=== PATIENT | male | born 1945 | race Two or more races ===

== ENCOUNTER 2024-07-01 14:01 | Inpatient (IN) | payer OTHER ==
[~2024-07-01] VITALS: Ht 165.1 cm; Wt 68.0 kg
[2024-07-01] MEDS ORDERED: 0.9 % SODIUM CHLORIDE 1,000 ML IV ONE (14:45)
[2024-07-01 14:52] LABS: ABG PH 7.336 (7.35-7.45); ABG PO2 92.3 mmHg (80-100); BASE EXCESS -15.3 mmol/l; BICARBONATE 7.3 mmol/l (23-25); Tco2 7.7 mmol/l
[2024-07-01 15:00] LABS: ABG pCO2 13.9 mmHg (35-45); allen test SATISFACTORY
[2024-07-01] MEDS ORDERED: PANTOPRAZOLE SODIUM 40 MG/VIAL VIAL IV ONE (15:00)
[2024-07-01] MEDS ORDERED: SODIUM BICARBONATE 1 MEQ/ML DISP.SYRIN 50ML IV ONE (15:00)
[2024-07-01] MEDS ORDERED: METOPROLOL TARTRATE 5MG/5ML AMPUL IV ONE (15:00)
[2024-07-01 15:01] LABS: o2 21 %; puncture site RADIAL LEFT
[2024-07-01 15:07] LABS: MEAN CELL VOLUME 90.8 fL (80.0-100.00); MEAN CORPUSCULAR HGB CONC 30.3 g/dl (32.0-36.0); PLATELET COUNT 692 K/uL (150-450); RED BLOOD COUNT 2.28 M/uL (4.00-6.00); RED CELL DISTRIBUTION WIDTH 16.5 % (11.5-14.5)
[2024-07-01 15:11] LABS: HEMATOCRIT 20.7 % (39.0-48.0); HEMOGLOBIN 6.3 g/dL (13-16.00); MEAN CORPUSCULAR HEMOGLOBIN 27.6 pg (27.00-32.0)
[2024-07-01 15:14] LABS: INR 1.23; PARTIAL THROMBOPLASTIN TIME 27.3 SECONDS (22.0-34.0); PROTHROMBIN TIME 13.2 SECONDS (9.0-11.5)
[2024-07-01 15:27] LABS: ALBUMIN 2.2 gm/dL (3.4-5.0); BILIRUBIN TOTAL 0.23 mg/dL (0.3-1.2); CALCIUM 8.6 mg/dL (8.5-10.1); CREATININE SERUM 2.12 mg/dL (0.70-1.30); GFR 30.44; GLOBULINA 4.4 G/DL (2.4-3.5); POTASSIUM 5.75 mEq/L (3.5-5.1); TOTAL PROTEIN 6.6 gm/dL (6.4-8.2)
[2024-07-01 16:39] LABS: URINE APPEARANCE Clear; URINE BILIRRUBIN Negative (NEGATIVE); URINE BLOOD Negative; URINE COLOR Yellow; URINE GLUCOSE Negative (NEGATIVE); URINE KETONE Negative (NEGATIVE); URINE LEUKOCYTE Negative; URINE NITRATE Negative; URINE PROTEIN Trace (NEGATIVE); URINE UROBILINOGEN 0.2 E.U./dl
[2024-07-01 16:43] LABS: URINE EPITHELIAL CELLS 22.8 uL (0.0-38.8); URINE WBC 37.8 uL (0.0-23.2)
[2024-07-01 16:48] LABS: URINE CAST 1.06 uL (0.0-1.40)
[2024-07-01] MEDS ORDERED: ONDANSETRON HCL 2 MG/ML VIAL IV STA (17:04)
[2024-07-01] MEDS ORDERED: MORPHINE SULFATE 4 MG/ML VIAL IV STA (17:05)
[2024-07-01] MEDS ORDERED: DOPamine HCL IN DEXTROSE 5 % 250 ML IV SCH (19:15)
[2024-07-01] MEDS ORDERED: DEXTROSE 5 % AND 0.9 % NACL 1,000 ML IV SCH (19:15)
[2024-07-01] MEDS ORDERED: MORPHINE SULFATE 4 MG/ML VIAL IV PRN (19:30)
[2024-07-01] MEDS ORDERED: NOREPINEPHRINE BITARTRATE 1 MG/ML AMPUL IV ONE (20:30)
[2024-07-01 20:39] VITALS: BP 70/60; O2SAT 99
[2024-07-01] MEDS ORDERED: DOCUSATE SODIUM 100MG CAP PO SCH (21:00)
[2024-07-01] MEDS ORDERED: PANTOPRAZOLE SODIUM 40 MG/VIAL VIAL IV SCH (21:00)
[2024-07-01] MEDS ORDERED: CEFTRIAXONE SODIUM 1,000 MG in DEXTROSE 5 % IN WATER 100 ML IV SCH (21:00)
[2024-07-01 22:18] LABS: ABG PH 7.491 (7.35-7.45); ABG PO2 69.3 mmHg (80-100)
[2024-07-01 22:19] LABS: BASE EXCESS -1.6 mmol/l; BICARBONATE 20.1 mmol/l (23-25); SaO2 -95.1 %; o2 21 %
[2024-07-01 22:20] LABS: allen test SATISFACTORY; puncture site RADIAL LEFT
[2024-07-01] MEDS ORDERED: FUROsemide 20 MG/2 ML VIAL IV SCH (22:30)
[2024-07-02] VITALS (7 sets, daily range): BP systolic 87–124; BP diastolic 56–78; O2SAT 94–100
[2024-07-02] MEDS ORDERED: DEXAMETHASONE SODIUM PHOSPHATE 4 MG/ML VIAL IV SCH (01:00)
[2024-07-02] MEDS ORDERED: ONDANSETRON HCL 2 MG/ML VIAL IV SCH (01:00)
[2024-07-02] MEDS ORDERED: NOREPINEPHRINE BITARTRATE 8 MG in DEXTROSE 5 % IN WATER 250 ML IV SCH (11:15)
[2024-07-02 13:10] LABS: ALBUMIN 1.9 gm/dL (3.4-5.0); BILIRUBIN TOTAL 0.41 mg/dL (0.3-1.2); CALCIUM 7.5 mg/dL (8.5-10.1); CREATININE SERUM 1.14 mg/dL (0.70-1.30); GFR 62.29; GLOBULINA 3.8 G/DL (2.4-3.5); POTASSIUM 3.94 mEq/L (3.5-5.1); TOTAL PROTEIN 5.7 gm/dL (6.4-8.2)
[2024-07-02] MEDS ORDERED: AMIODARONE HCL 50 MG/ML AMPUL IV ONE (14:15)
[2024-07-02 14:24] LABS: MAGNESIUM 2.3 mg/dL (1.8-2.4); PHOSPHOROUS 2.9 mg/dL (2.5-4.9)
[2024-07-02] MEDS ORDERED: AA 4.25%/CAL/LYTES/DEXT 5% 1,000 ML PERIFERAL SCH (17:23)
[2024-07-02] MEDS ORDERED: AA 4.25%/CALCIUM/LYTES/DEX 10% 1,000 ML CENTRAL SCH (17:30)
[2024-07-02 18:43] LABS: HEMATOCRIT 25.7 % (39.0-48.0); MEAN CELL VOLUME 85.1 fL (80.0-100.00); MEAN CORPUSCULAR HEMOGLOBIN 28.2 pg (27.00-32.0); MEAN CORPUSCULAR HGB CONC 33.2 g/dl (32.0-36.0); PLATELET COUNT 565 K/uL (150-450); RED BLOOD COUNT 3.01 M/uL (4.00-6.00); RED CELL DISTRIBUTION WIDTH 15.3 % (11.5-14.5)
[2024-07-02 18:44] LABS: HEMOGLOBIN 8.5 g/dL (13-16.00)
[2024-07-03] VITALS (16 sets, daily range): BP systolic 99–138; BP diastolic 69–84; O2SAT 94–100
[2024-07-03 17:53] LABS: HEMATOCRIT 30.7 % (39.0-48.0); HEMOGLOBIN 10.4 g/dL (13-16.00); MEAN CELL VOLUME 85.6 fL (80.0-100.00); MEAN CORPUSCULAR HEMOGLOBIN 28.8 pg (27.00-32.0); MEAN CORPUSCULAR HGB CONC 33.7 g/dl (32.0-36.0); PLATELET COUNT 394 K/uL (150-450); RED BLOOD COUNT 3.59 M/uL (4.00-6.00)
[2024-07-04 08:26] VITALS: BP 108/67; O2SAT 98
[2024-07-04] MEDS ORDERED: DIATRIZOATE MEGLUMINE, SODIUM 30 ML BOTTLE PO STA (11:31)
[2024-07-04 16:00] VITALS: BP 125/77; O2SAT 95
[2024-07-04] MEDS ORDERED: KETOROLAC TROMETHAMINE 30 MG VIAL IV STA (19:02)
[2024-07-04] MEDS ORDERED: DEXTROSE 50 % IN WATER 0.5 G/ML DISP.SYRIN IV PRN (19:15)
[2024-07-04] MEDS ORDERED: HYOSCYAMINE SULFATE 0.125 MG TAB.SUBL SL PRN (19:15)
[2024-07-04] MEDS ORDERED: KETOROLAC TROMETHAMINE 30 MG VIAL IV PRN (19:15)
[2024-07-04 20:00] VITALS: BP 127/72
[2024-07-04 21:30] VITALS: BP 114/73
[2024-07-05 01:29] VITALS: BP 125/77; O2SAT 95
[2024-07-05 08:00] VITALS: BP 112/72; O2SAT 95
[2024-07-05] MEDS ORDERED: MORPHINE SULFATE 4 MG/ML CARTRIDGE IV STA (10:32)
[2024-07-05 12:54] LABS: HEMATOCRIT 36.6 % (39.0-48.0); HEMOGLOBIN 12.2 g/dL (13-16.00); MEAN CELL VOLUME 85.9 fL (80.0-100.00); MEAN CORPUSCULAR HEMOGLOBIN 28.5 pg (27.00-32.0); MEAN CORPUSCULAR HGB CONC 33.2 g/dl (32.0-36.0); PLATELET COUNT 328 K/uL (150-450); RED BLOOD COUNT 4.26 M/uL (4.00-6.00); RED CELL DISTRIBUTION WIDTH 15.8 % (11.5-14.5)
[2024-07-05 14:01] LABS: ALBUMIN 1.8 gm/dL (3.4-5.0); BILIRUBIN TOTAL 1.41 mg/dL (0.3-1.2); CALCIUM 7.9 mg/dL (8.5-10.1); CREATININE SERUM 1.01 mg/dL (0.70-1.30); GFR 71.63; GLOBULINA 3.9 G/DL (2.4-3.5); POTASSIUM 4.88 mEq/L (3.5-5.1); TOTAL PROTEIN 5.7 gm/dL (6.4-8.2)
[2024-07-05] MEDS ORDERED: fentaNYL CITRATE 50 MCG/ML AMPUL IV PUSH ONE (15:00)
[2024-07-05] MEDS ORDERED: MIDAZOLAM HCL 2 MG/2 ML VIAL IV PUSH ONE (15:00)
[2024-07-05 17:12] VITALS: BP 116/65; O2SAT 97
[2024-07-06] VITALS: BP 102/60; O2SAT 92
[2024-07-06 05:33] VITALS: O2SAT 84
[2024-07-06 09:00] VITALS: BP 114/74; O2SAT 94
[2024-07-06] MEDS ORDERED: CEFTRIAXONE SODIUM 2,000 MG in 0.9 % SODIUM CHLORIDE 100 ML IV NR (13:40)
[2024-07-06] MEDS ORDERED: ANIDULAFUNGIN 100 MG VIAL IV NR (14:00)
[2024-07-06 16:57] VITALS: BP 113/75; O2SAT 91
[2024-07-06] MEDS ORDERED: METRONIDAZOLE/SODIUM CHLORIDE 100 ML IV SCH (17:00)
[2024-07-07] VITALS: BP 111/69; O2SAT 93
[2024-07-07 07:58] LABS: HEMATOCRIT 34.9 % (39.0-48.0); HEMOGLOBIN 11.5 g/dL (13-16.00); MEAN CELL VOLUME 86.4 fL (80.0-100.00); MEAN CORPUSCULAR HEMOGLOBIN 28.6 pg (27.00-32.0); MEAN CORPUSCULAR HGB CONC 33.1 g/dl (32.0-36.0); PLATELET COUNT 267 K/uL (150-450); RED BLOOD COUNT 4.04 M/uL (4.00-6.00)
[2024-07-07 08:24] LABS: ALBUMIN 1.6 gm/dL (3.4-5.0); BILIRUBIN TOTAL 1.32 mg/dL (0.3-1.2); CALCIUM 8.6 mg/dL (8.5-10.1); CREATININE SERUM 0.94 mg/dL (0.70-1.30); GFR 77.82; GLOBULINA 3.6 G/DL (2.4-3.5); MAGNESIUM 2.7 mg/dL (1.8-2.4); POTASSIUM 5.5 mEq/L (3.5-5.1); TOTAL PROTEIN 5.2 gm/dL (6.4-8.2)
[2024-07-07] MEDS ORDERED: ANIDULAFUNGIN 100 MG VIAL IV SCH (09:00)
[2024-07-07 10:29] VITALS: BP 117/76; O2SAT 91
[2024-07-07] MEDS ORDERED: CEFTRIAXONE SODIUM 2,000 MG in 0.9 % SODIUM CHLORIDE 100 ML IV SCH (12:00)
[2024-07-07] MEDS ORDERED: SODIUM BICARBONATE 50MEQ/50ML VIAL IV NR (15:00)
[2024-07-07 15:22] VITALS: BP 132/77; O2SAT 98
[2024-07-07] MEDS ORDERED: DEXAMETHASONE SODIUM PHOSPHATE 4 MG/ML VIAL IV SCH (21:00)
[2024-07-08] VITALS: BP 123/68; O2SAT 97
[2024-07-08 06:13] LABS: ABG PH 7.462 (7.35-7.45); ABG PO2 63.9 mmHg (80-100); ABG pCO2 34.8 mmHg (35-45); SaO2 93.5 %
[2024-07-08 06:14] LABS: BASE EXCESS 1.1 mmol/l; BICARBONATE 24.3 mmol/l (23-25); Tco2 25.4 mmol/l; allen test SATISFACTORY; o2 21 %; puncture site RADIAL RIGHT
[2024-07-08 06:42] LABS: HEMATOCRIT 34.8 % (39.0-48.0); HEMOGLOBIN 11.3 g/dL (13-16.00); MEAN CELL VOLUME 86.9 fL (80.0-100.00); MEAN CORPUSCULAR HEMOGLOBIN 28.2 pg (27.00-32.0); MEAN CORPUSCULAR HGB CONC 32.4 g/dl (32.0-36.0); PLATELET COUNT 238 K/uL (150-450); RED CELL DISTRIBUTION WIDTH 16.2 % (11.5-14.5)
[2024-07-08 07:11] LABS: ALBUMIN 1.5 gm/dL (3.4-5.0); BILIRUBIN TOTAL 0.85 mg/dL (0.3-1.2); BILIRUBIN,CONJUGATED 0.57 mg/dL (0.0-0.2); BILIRUBIN,UNCONJUGATED 0.28 mg/dL (0.0-0.6); CALCIUM 8.4 mg/dL (8.5-10.1); CREATININE SERUM 0.85 mg/dL (0.70-1.30); GFR 87.4; GLOBULINA 4.1 G/DL (2.4-3.5); MAGNESIUM 2.5 mg/dL (1.8-2.4); POTASSIUM 4.93 mEq/L (3.5-5.1); TOTAL PROTEIN 5.6 gm/dL (6.4-8.2)
[2024-07-08 07:43] LABS: INR 1.27; PARTIAL THROMBOPLASTIN TIME 27.9 SECONDS (22.0-34.0)
[2024-07-08 09:56] VITALS: BP 135/74; O2SAT 97
[2024-07-08 10:29] LABS: UREA CLEARANCE 13.4 ML/MIN
[2024-07-08 15:50] VITALS: BP 119/70; O2SAT 98
[2024-07-09 00:36] VITALS: BP 133/79; O2SAT 95
[2024-07-09 08:19] VITALS: BP 148/81; O2SAT 96
[2024-07-09 16:16] VITALS: BP 133/87; O2SAT 98
[2024-07-10] VITALS: BP 112/66; O2SAT 95
[2024-07-10 10:20] VITALS: BP 149/80; O2SAT 93
[2024-07-10 17:00] VITALS: BP 108/68; O2SAT 96
[2024-07-10] MEDS ORDERED: AMIODARONE HCL 200 MG TABLET PO SCH (17:47)
[2024-07-10] MEDS ORDERED: MORPHINE SULFATE 4 MG/ML CARTRIDGE IV PRN (18:00)
[2024-07-10] MEDS ORDERED: KETOROLAC TROMETHAMINE 30 MG VIAL IV PRN (18:00)
[2024-07-11] VITALS: BP 90/52; O2SAT 95
[2024-07-11 07:57] LABS: HEMATOCRIT 37.9 % (39.0-48.0); HEMOGLOBIN 12.1 g/dL (13-16.00); MEAN CELL VOLUME 87.1 fL (80.0-100.00); MEAN CORPUSCULAR HEMOGLOBIN 27.9 pg (27.00-32.0); PLATELET COUNT 134 K/uL (150-450); RED BLOOD COUNT 4.35 M/uL (4.00-6.00); RED CELL DISTRIBUTION WIDTH 16.5 % (11.5-14.5)
[2024-07-11 08:29] LABS: ALBUMIN 1.4 gm/dL (3.4-5.0); BILIRUBIN TOTAL 0.83 mg/dL (0.3-1.2); CALCIUM 7.9 mg/dL (8.5-10.1); CREATININE SERUM 1.55 mg/dL (0.70-1.30); GFR 43.69; GLOBULINA 2.9 G/DL (2.4-3.5); POTASSIUM 5.65 mEq/L (3.5-5.1); TOTAL PROTEIN 4.3 gm/dL (6.4-8.2)
[2024-07-11 09:00] VITALS: BP 112/56; O2SAT 83
[2024-07-11] MEDS ORDERED: PANTOPRAZOLE SODIUM 40 MG TABLET.DR PO SCH (09:00)
== END 2024-07-11 15:14 | disposition expired | DRG 377 ==
LOC: ER 14:01 → ICU-2 19:57 → ICU 07-02 21:28 → SURH 07-03 18:40
PROVIDERS: General Practice; Internal Medicine; ADMIT Internal Medicine Hematology & Oncology; ATTEND Internal Medicine Hematology & Oncology
PROC: BW21ZZZ Computerized Tomography (CT Scan) of Abdomen and Pelvis (ICD-10-PCS; 2024-07-01)
PROC: B24BYZZ Ultrasonography of Heart with Aorta using Other Contrast (ICD-10-PCS; 2024-07-03)
PROC: BW21YZZ Computerized Tomography (CT Scan) of Abdomen and Pelvis using Other Contrast (ICD-10-PCS; 2024-07-04)
PROC: 0H97XZZ Drainage of Abdomen Skin, External Approach (ICD-10-PCS; principal; 2024-07-05)
PROC: B54DZZZ Ultrasonography of Bilateral Lower Extremity Veins (ICD-10-PCS; 2024-07-10)
PROC: 3E0L3SF Introduction of Other Gas into Pleural Cavity, Percutaneous Approach (ICD-10-PCS; 2024-07-11)
DX: K92.2 Gastrointestinal hemorrhage, unspecified (principal); A41.9 Sepsis, unspecified organism; R65.21 Severe sepsis with septic shock; K65.1 Peritoneal abscess; J96.90 Respiratory failure, unspecified, unspecified whether with hypoxia or hypercapnia; C85.1A Unspecified B-cell lymphoma, in remission; E87.20 Acidosis, unspecified; N17.9 Acute kidney failure, unspecified; E87.3 Alkalosis; C79.89 Secondary malignant neoplasm of other specified sites; I47.20 Ventricular tachycardia, unspecified; D64.9 Anemia, unspecified; Z66 Do not resuscitate; R57.1 Hypovolemic shock; I95.9 Hypotension, unspecified; D72.829 Elevated white blood cell count, unspecified